=== PATIENT | male | born 1985 | race Caucasian/White ===

== ENCOUNTER 2018-06-21 14:10 | Emergency (ER) | payer OTHER ==
[2018-06-21] MEDS ORDERED: ASPIRIN (CHEWABLE) 81 MG TAB PO ONE (14:28)
--- NOTE | 2018-06-21 14:41 | RAD ---
EXAM DESCRIPTION: Chest,1 View CLINICAL HISTORY: 33 years Male, chest tightness COMPARISON: None. IMPRESSION: Heart size and pulmonary vascularity are within normal limits. There is no airspace consolidation, pleural effusion, or pneumothorax. No acute osseous abnormality. Electronically signed by: Rafael Henderson MD 06/21/2018 2:39 PM CDT
[2018-06-21 15:06] VITALS: TEMP 98
[2018-06-21] MEDS ORDERED: SODIUM CHLORIDE 0.9% 1000ML 1,000 ML IVS ONE (16:15)
--- NOTE | 2018-06-21 16:32 | ED.PDOC ---
History of Present Illness - General Chief Complaint: Chest Pain/TX Stated Complaint: chest tightness Time Seen by Provider: 06/21/18 15:10 Source: patient, family Exam Limitations: no limitations - History of Present Illness Initial Comments: CHEST TIGHTNESS OF L PECTORAL REGION X 2-3 D, COMES AND GOES. FATIGUE, LUE PARESTHESIA AND DIZZY FOR A SECOND, WHICH RESOLVED. HE FEELS BACK TO NL AT PRESENT. PT STATES HE DOES NOT DRINK MUCH WATER, LIVES A SEDENTARY LIFESTYLE, AND EATS A LOT OF FAST FOOD. Severity/Quality: aching Location: other - L CHEST Chest Pain Radiation: arms Activities at Onset: none Prior Chest Pain/Cardiac Workup: no prior chest pain, no prior cardiac workup Improving Factors: nothing Worsening Factors: nothing Nitro Today/Relief: no nitro taken today Aspirin Treatment Today: no aspirin today Associated Symptoms: denies symptoms Allergies/Adverse Reactions: Allergies NO KNOWN ALLERGY Allergy (Verified 06/21/18 14:26) Home Medications: Ambulatory Orders NK [NK] 06/21/18 Review of Systems - Review of Systems Constitutional: States: no symptoms reported EENTM: States: no symptoms reported Respiratory: States: no symptoms reported Cardiology: States: no symptoms reported Gastrointestinal/Abdominal: States: no symptoms reported Genitourinary: States: no symptoms reported Musculoskeletal: States: no symptoms reported Skin: States: no symptoms reported Neurological: States: no symptoms reported Endocrine: States: no symptoms reported Hematologic/Lymphatic: States: no symptoms reported All other Systems: Reviewed and Negative - PT IS NOW ASX IN ER. Past Medical History (General) - Patient Medical History Hx Stroke: No Hx Congestive Heart Failure: No Hx Diabetes: No Surgical History: tonsillectomy - Vaccination History Hx Influenza Vaccination: Yes - Social History Hx Tobacco Use: No Family Medical History - Family History Brother Family History: Unknown Hx Cardiac Disease: Yes Physical Exam - Physical Exam General Appearance: Alert, No apparent distress Eyes, Ears, Nose, Throat Exam: PERRL/EOMI, normal ENT inspection Neck: non-tender, full range of motion Respiratory: chest non-tender, lungs clear Cardiovascular/Chest: normal peripheral pulses, regular rate, rhythm Peripheral Pulses: radial,right: 2+, radial,left: 2+ Gastrointestinal/Abdominal: normal bowel sounds, non tender, soft Extremity: normal range of motion, non-tender, normal inspection Neurologic: no motor/sensory deficits, alert, normal mood/affect Skin Exam: normal color, warm/dry Lymphatic: no adenopathy Progress - Progress Progress: 06/21/18 16:38 W/U WNL: CBC, COAGS, CXR, EKG, TROPONIN AND CKMB. 2-3 D OF CP THUS 1 SET OF CARD ENZ RULES OUT ACUTE CORONARY SYNDROME. CMP WNL EXCEPT BUN AND CK, INDICATING HYPOVOLEMIA. THUS GIVING 1 L NS BOLUS. 06/21/18 16:39 Departure - Departure Clinical Impression: Atypical chest pain, Dehydration, Elevated BUN, Elevated CK, Pre-hypertension Disposition: Discharge to Home or Self Care Departure Forms: ED Discharge - Pt. Copy, Patient Portal Self Enrollment Referrals: Trae Ervin MD [Primary Care Provider] - 1-2 Weeks Home Medications: Ambulatory Orders NK [NK] 06/21/18 Additional Instructions: Please keep the follow-up appt with your regular doctor next week to follow your blood pressure. Please drink at least 64 oz of water per day. Please start exercising 30 minutes 3 days per week, avoid fast food, try to lose about 10 pounds, and increase fruits and vegetables, otherwise you could eventually develop heart problems and high blood pressure requiring medications.
[2018-06-21 17:27] VITALS: BP 147/85; O2SAT 98
== END 2018-06-21 17:29 | disposition home or self-care (01) ==
LOC: ER 14:10
DX: R07.89 Other chest pain (principal); E86.0 Dehydration; R79.89 Other specified abnormal findings of blood chemistry
CPT/HCPCS: 36415; 71045; 80048; 82550; 82553; 84484; 85025; 85610; 85730; 93005; J7030

== ENCOUNTER → 2020-06-06 | Outpatient (CLI) | payer OTHER | LOC: GMAJ 14:12 | PROVIDERS: ATTEND Family Medicine | DX: Z13.29 Encounter for screening for other suspected endocrine disorder (principal); Z82.49 Family history of ischemic heart disease and other diseases of the circulatory system ==